=== PATIENT | female | born 1990 | race Caucasian/White ===

== ENCOUNTER → 2023-02-17 | Outpatient (REF) | payer BC ==
[~2023-02-17] MED LIST: LAMICTAL100 MG PO; PEPCID20 MG PO; PROTONIX20 MG PO; SUCRALFATE1 GM PO; TRULANCE3 MG PO
== END ==
LOC: DX 08:49
PROVIDERS: ATTEND Nurse Practitioner
DX: R10.10 Upper abdominal pain, unspecified (principal)
CPT/HCPCS: 74250